=== PATIENT | female | born 1945 | race Caucasian/White ===

== ENCOUNTER 2018-10-14 13:33 | Emergency (ER) | payer OTHER ==
[~2018-10-14] VITALS: Ht 167.6 cm; Wt 72.6 kg
[~2018-10-14 13:33] MED LIST: CATAFLAM50 MG PO; CLARITIN10 M1 PO; FLOVENT DISKU100 MCG IH; LEVAQUIN750 MG PO; MEDROLPACK PO; PROTONIX20 MG; TESSALON PERLE100 MG PO; TUSSI PRES-B L120 M1 PO; XOPENEX HFA15 GM IH; XOPENEX1.25 MG/0. IH; ZITHROMAX TRI-500 MG PO
[2018-10-14] MEDS ORDERED: MUCINEX DM ER1 EACH PO (15:45)
== END 2018-10-14 16:00 | disposition home or self-care (01) ==
LOC: ER 13:33
DX: B34.9 Viral infection, unspecified (principal); J11.1 Influenza due to unidentified influenza virus with other respiratory manifestations

== ENCOUNTER → 2024-11-16 | Emergency (ER) | payer OTHER ==
[~2024-11-16] VITALS: Ht 167.6 cm; Wt 68.0 kg
[~2024-11-16] MED LIST changes: +ACETAMINOPHEN 500 MG GEL..CAP PO ONE; +MUCINEX DM ER1 EACH PO
== END | disposition home or self-care (01) ==
LOC: ER 18:08
DX: S80.01XA Contusion of right knee, initial encounter (principal); W01.0XXA Fall on same level from slipping, tripping and stumbling without subsequent striking against object, initial encounter; Y93.89 Activity, other specified; Y92.018 Other place in single-family (private) house as the place of occurrence of the external cause; Z91.041 Radiographic dye allergy status; M17.11 Unilateral primary osteoarthritis, right knee; J44.9 Chronic obstructive pulmonary disease, unspecified; S00.531A Contusion of lip, initial encounter

== ENCOUNTER 2025-04-27 09:24 | Emergency (ER) | payer OTHER ==
[~2025-04-27] VITALS: Ht 165.1 cm; Wt 68.5 kg
[~2025-04-27 09:24] MED LIST changes: -ACETAMINOPHEN 500 MG GEL..CAP PO ONE
[2025-04-27] MEDS ORDERED: EZETIMIBE10 MG PO (09:34)
[2025-04-27] MEDS ORDERED: CELECOXIB200 MG PO (09:34)
[2025-04-27] MEDS ORDERED: HYOSCYAMINE0.125 M1 SL (09:34)
[2025-04-27] MEDS ORDERED: MAXIMUM D3325 MCG PO (09:35)
[2025-04-27 10:48] LABS: URINE APPEARANCE Clear; URINE BILIRRUBIN Negative (NEGATIVE); URINE BLOOD Large; URINE COLOR Yellow; URINE KETONE Negative (NEGATIVE); URINE LEUKOCYTE Small; URINE NITRATE Negative; URINE PROTEIN Trace (NEGATIVE); URINE UROBILINOGEN 0.2 E.U./dl
[2025-04-27 10:50] LABS: URINE EPITHELIAL CELLS 2.9 uL (0.0-38.8); URINE RBC 113.3 uL (0.0-20.8); URINE WBC 579.0 uL (0.0-23.2)
[2025-04-27 10:53] LABS: URINE BACTERIA > 9821.5 uL (0.0-1933); URINE CAST 0.43 uL (0.0-1.40); URINE GLUCOSE 500 MG/DL (NEGATIVE)
[2025-04-27] MEDS ORDERED: CEFTRIAXONE SODIUM 2,000 MG VIAL IV ONE (11:15)
== END 2025-04-27 12:47 | disposition home or self-care (01) ==
LOC: ER 09:26
PROVIDERS: General Practice
DX: N39.0 Urinary tract infection, site not specified (principal); E78.00 Pure hypercholesterolemia, unspecified; Z91.041 Radiographic dye allergy status; B96.29 Other Escherichia coli [E. coli] as the cause of diseases classified elsewhere; Z16.11 Resistance to penicillins
CPT/HCPCS: 74240; 96365; 99283; J0696